=== PATIENT | male | born 1995 | race Caucasian/White ===

== ENCOUNTER → 2017-10-23 | Outpatient (REF) | payer BC, OTHER ==
[2017-10-23 21:11] LABS: CHLAMYDIA DNA AMPLIFICATION NEGATIVE (NEGATIVE); GC DNA AMPLIFICATION NEGATIVE (NEGATIVE)
== END ==
LOC: M LAB REF 13:46
DX: N41.0 Acute prostatitis (principal)
CPT/HCPCS: 87086

== ENCOUNTER → 2018-06-09 | Outpatient (REF) | payer BC, OTHER | LOC: M LAB REF 11:58 | DX: J06.9 Acute upper respiratory infection, unspecified (principal) | CPT/HCPCS: 87081 ==

== ENCOUNTER 2023-11-05 07:04 | Emergency (ER) | payer BC, OTHER ==
[~2023-11-05] VITALS: Ht 190.5 cm; Wt 86.4 kg
[2023-11-05 09:22] LABS: BLOOD UREA NITROGEN 21 MG/DL (9-23); CALCIUM LEVEL 8.6 MG/DL (8.5-10.1); CARBON DIOXIDE LEVEL 26 MMOL/L (20-31); CHLORIDE LEVEL 105 MMOL/L (98-107); CREATININE FOR GFR 1.15 MG/DL (0.70-1.30); GLOMERULAR FILTRATION RATE > 60.0 (>60); GLUCOSE, FASTING 116 MG/DL (60-100); POTASSIUM SERUM 3.9 MMOL/L (3.5-5.1); SODIUM LEVEL 138 MMOL/L (136-145)
[2023-11-05 09:39] LABS: BASO % 0.4 % (0.0-1.0); EOS # 0.1 10^3/uL (0.0-0.5); EOS % 1.3 % (0.0-3.0); HEMATOCRIT 40.8 % (42.0-52.0); HEMOGLOBIN 13.7 g/dl (13.5-17.5); LYMPH # 2.9 10^3/uL (1.5-5.0); LYMPH % 38.1 % (24.0-44.0); MEAN CORPUSCULAR HEMOGLOBIN 28.8 pg (27.0-33.0); MEAN CORPUSCULAR HGB CONC 33.6 g/dl (32.0-36.5); MEAN CORPUSCULAR VOLUME 85.9 fl (80.0-96.0); MONO # 0.7 10^3/uL (0.0-0.8); MONO % 9.2 % (2.0-8.0); NEUTROPHILS # 3.8 10^3/uL (1.5-8.5); NEUTROPHILS % 50.6 % (36.0-66.0); PLATELET COUNT, AUTOMATED 247 10^3/uL (150-450); RED BLOOD COUNT 4.75 10^6/uL (4.30-6.10); WHITE BLOOD COUNT 7.6 10^3/uL (4.0-10.0)
[2023-11-05 10:14] LABS: BARBITURATES URINE NEGATIVE (NEGATIVE); COCAINE METABOLITE URINE NEGATIVE (NEGATIVE); METHADONE URINE NEGATIVE (NEGATIVE); OPIATES URINE NEGATIVE (NEGATIVE)
[2023-11-05 10:15] LABS: AMPHETAMINES LEVEL URINE NEGATIVE (NEGATIVE); BENZODIAZEPINES URINE NEGATIVE (NEGATIVE); CANNABINOIDS URINE NEGATIVE (NEGATIVE)
[2023-11-05 10:20] LABS: PHENCYCLIDINE URINE NEGATIVE (NEGATIVE)
[2023-11-05] MEDS ORDERED: HOLTER MONITOR XX (10:29)
[2023-11-05 10:38] VITALS: BP 115/54; TEMP 98.6; O2SAT 100
== END 2023-11-05 10:58 | disposition home or self-care (01) ==
LOC: M ED 07:04
DX: R55 Syncope and collapse (principal); Z77.29 Contact with and (suspected) exposure to other hazardous substances; I44.4 Left anterior fascicular block; R00.1 Bradycardia, unspecified; F10.10 Alcohol abuse, uncomplicated; Z88.2 Allergy status to sulfonamides; Y92.9 Unspecified place or not applicable; Y93.89 Activity, other specified; Y99.0 Civilian activity done for income or pay

== ENCOUNTER → 2023-11-07 | Outpatient (CLI) | payer OTHER ==
[~2023-11-07] MED LIST: HOLTER MONITOR XX
== END ==
LOC: M EKG 11:46
PROVIDERS: ATTEND Emergency Medicine
DX: R55 Syncope and collapse (principal)

== ENCOUNTER 2024-01-12 19:58 | Emergency (ER) | payer OTHER ==
[~2024-01-12] VITALS: Ht 188 cm; Wt 86.4 kg
[2024-01-12] MEDS: methocarbamoL 750 MG TAB PO ONE (20:25)
[2024-01-12] MEDS: LIDOCAINE 5% (LIDODERM) PATCH TD ONE (20:26)
[2024-01-12] MEDS: KETOROLAC TROMETHAMINE 10 MG TAB PO ONE (20:26)
[2024-01-12] MEDS ORDERED: LIDO1PAD TOP (21:26)
[2024-01-12] MEDS ORDERED: METH-1165 PO (21:26)
[2024-01-12] MEDS ORDERED: KETO10TAB PO (21:26)
[2024-01-12 21:40] VITALS: BP 110/59; TEMP 97.8; O2SAT 97
== END 2024-01-12 21:41 | disposition home or self-care (01) ==
LOC: M ED 19:58
DX: S39.012A Strain of muscle, fascia and tendon of lower back, initial encounter (principal); X50.0XXA Overexertion from strenuous movement or load, initial encounter; Y92.9 Unspecified place or not applicable; Y93.9 Activity, unspecified; Y99.9 Unspecified external cause status; Z88.2 Allergy status to sulfonamides

== ENCOUNTER 2024-06-06 15:41 | Emergency (ER) | payer OTHER ==
[~2024-06-06] VITALS: Ht 182.9 cm; Wt 85.1 kg
[~2024-06-06 15:41] MED LIST changes: +KETO10TAB PO; +LIDO1PAD TOP; +METH-1165 PO
[2024-06-06 16:21] LABS: BASO % 0.4 % (0.0-1.0); EOS # 0.1 10^3/uL (0.0-0.5); EOS % 1.5 % (0.0-3.0); LYMPH % 41.9 % (24.0-44.0); MEAN CORPUSCULAR HEMOGLOBIN 28.5 pg (27.0-33.0); MEAN CORPUSCULAR HGB CONC 33.3 g/dl (32.0-36.5); MEAN CORPUSCULAR VOLUME 85.4 fl (80.0-96.0); MONO # 0.4 10^3/uL (0.0-0.8); MONO % 8.7 % (2.0-8.0); NEUTROPHILS # 2.3 10^3/uL (1.5-8.5); NEUTROPHILS % 47.3 % (36.0-66.0); PLATELET COUNT, AUTOMATED 228 10^3/uL (150-450); RED BLOOD COUNT 4.92 10^6/uL (4.30-6.10); WHITE BLOOD COUNT 4.8 10^3/uL (4.0-10.0)
[2024-06-06 16:41] LABS: BLOOD UREA NITROGEN 15 MG/DL (9-23); CALCIUM LEVEL 8.7 MG/DL (8.5-10.1); CARBON DIOXIDE LEVEL 26 MMOL/L (20-31); CHLORIDE LEVEL 106 MMOL/L (98-107); CK-MB VALUE MASS < 1.0 NG/ML (<3.6); GLOMERULAR FILTRATION RATE > 60.0 (>60); GLUCOSE, FASTING 88 MG/DL (60-100); POTASSIUM SERUM 3.9 MMOL/L (3.5-5.1); SODIUM LEVEL 138 MMOL/L (136-145)
[2024-06-06 16:43] LABS: CPK CREATINE PHOSPHOKINASE 250 U/L (46-171)
[2024-06-06] MEDS: LORazepam 2 MG/ML 1ML VIAL IV STA (18:11)
[2024-06-06] MEDS: ASPIRIN 325 MG TAB PO ONE (18:11)
[2024-06-06 18:37] LABS: CK-MB VALUE MASS < 1.0 NG/ML (<3.6)
[2024-06-06 18:38] LABS: CPK CREATINE PHOSPHOKINASE 237 U/L (46-171); MB/CK RELATIVE INDEX 0.42 (< OR =4)
[2024-06-06] MEDS ORDERED: HOLTER MONITOR XX (19:35)
[2024-06-06 19:56] VITALS: BP 105/52; TEMP 97.5; O2SAT 98
== END 2024-06-06 19:54 | disposition home or self-care (01) ==
LOC: M ED 15:41
DX: R00.2 Palpitations (principal); Z88.2 Allergy status to sulfonamides
CPT/HCPCS: 71045; 80048; 82550; 82553; 84484; 85025; 93005; 93041; 94760; 96374; 99285; J2060

== ENCOUNTER → 2024-06-07 | Outpatient (CLI) | payer OTHER | LOC: M EKG 14:36 | PROVIDERS: ATTEND Emergency Medicine | DX: R00.2 Palpitations (principal); I44.1 Atrioventricular block, second degree ==

== ENCOUNTER → 2024-06-13 | Outpatient (REF) | payer OTHER | LOC: M LAB REF 16:52 | PROVIDERS: ATTEND Physician Assistant Medical | DX: R07.89 Other chest pain (principal) ==